=== PATIENT | female | born 1980 | race Caucasian/White ===

== ENCOUNTER 2016-09-12 04:05 | Inpatient (IN) | payer MEDICAID, OTHER ==
[~2016-09-12] VITALS: Ht 174 cm; Wt 104.8 kg
[~2016-09-12 04:05] MED LIST: IBUP-1827 PO
[2016-09-12] MEDS ORDERED: Hemorrhage Kit, Post Partum XX ONE ×2 (04:40→05:50)
[2016-09-12] MEDS ORDERED: Penicillin G K Inj 5,000,000 UNITS in Dextrose 5% Minibag Plus 100 ML IV ONE (04:40)
[2016-09-12] MEDS ORDERED: fentaNYL-PF 50 mCg/mL 2 mL Inj IVPUSH PRN (04:40)
[2016-09-12] MEDS ORDERED: Methylergonovine 0.2 mg/mL Inj IM PRN ×2 (04:40→05:50)
[2016-09-12] MEDS ORDERED: Oxytocin 30 Units/500 mL LR 30 UNITS in IV Premix 1 EACH IV PRN ×2 (04:40→05:50)
[2016-09-12] MEDS ORDERED: Lactated Ringer's 1,000 ML IV PRN (04:40)
[2016-09-12] MEDS ORDERED: Sodium Chloride LOK Flush 10 mL Syringe IVFLUSH PRN (04:40)
[2016-09-12] MEDS ORDERED: Oxytocin 10 Unit/mL Inj IM PRN ×2 (04:40→05:50)
[2016-09-12] MEDS ORDERED: Carboprost 250 mCg/mL Inj IM PRN ×2 (04:40→05:50)
[2016-09-12] MEDS ORDERED: Ondansetron 2 mg/mL 2 mL Inj IVPUSH PRN ×2 (04:40→04:50)
[2016-09-12] MEDS ORDERED: Lactated Ringer's 500 ML IV ONE (04:47)
[2016-09-12] MEDS ORDERED: Lactated Ringer's 1,000 ML IV SCH ×2 (04:47→05:48)
[2016-09-12] MEDS ORDERED: Atropine 1 mg/10 mL (Code) Syringe IVPUSH PRN (04:50)
[2016-09-12] MEDS ORDERED: EPHEDrine Sulfate 50 mg/mL Inj IVPUSH PRN (04:50)
[2016-09-12] MEDS ORDERED: fentaNYL 2 mCg/mL-Bupiv 0.125% 100 ML EPIDURAL SCH (04:50)
[2016-09-12 05:03] LABS: Mean Corpuscular Hemoglobin 27.9 pg (27.0-35.0); Mean Corpuscular Volume 87.2 fL (81-100)
[2016-09-12] MEDS ORDERED: Benzocaine (Dermoplast) 20% 60 Gm Spray TOPICAL PRN (05:50)
[2016-09-12] MEDS ORDERED: LANOlin HPA 7 Gm Ointment TOPICAL PRN (05:50)
[2016-09-12] MEDS ORDERED: Witch Hazel-Glycerin Pads TOPICAL PRN (05:50)
[2016-09-12] MEDS ORDERED: HYDROcodone-APAP 5-325 mg Tablet PO PRN (05:50)
[2016-09-12] MEDS ORDERED: Penicillin G K Inj 3,000,000 UNITS in IV Premix 1 EACH IV SCH (08:30)
[2016-09-12] MEDS ORDERED: Sodium Chloride LOK Flush 10 mL Syringe IVFLUSH SCH (08:30)
[2016-09-13 06:48] LABS: Mean Corpuscular Hemoglobin 28.1 pg (27.0-35.0)
--- NOTE | 2016-09-13 08:52 | PCM.DC.OB ---
Obstetrical Discharge Summary Date of Service Sep 13, 2016 Date of hospital admission Sep 12, 2016 at 04:40 Date of Discharge: Sep 13, 2016 Providers Admitting Physician: Robin Yin MD Primary Care Physician: Robin Yin MD Attending Physician: Robin Yin MD Problems: (1) Status post normal vaginal delivery Onset Date: 05/25/2015 Status: Acute ICD Code: V13.29 Consultations None Invasive procedures NVD Date of Procedure: Sep 12, 2016 Hospital Course: Patient presented in labor and delivered without incident. Recovered well. Ibuprofen (Ibuprofen) 600 Mg Tablet 600 MG PO Q6H PRN PRN For Mild Pain Prescribed by: ROBIN YIN MD Follow-up plan See me in six weeks. Discharge Diet: No restrictions Discharge Activity-General: Pelvic Rest for 6 weeks, Try not to overdue, Be up and about, Balance rest and activity, Activity as energy allows, No lifting >15 pounds for 2 weeks copies to: ROMAN FERREIRA MD, David B MD Sep 13, 2016 08:52
--- NOTE | 2016-09-13 08:53 | PCM.DIOB ---
Obstetrical Disch Instruction Date of Service: Sep 13, 2016 Dates of Hospitalization Date of Hospital Admission Sep 12, 2016 at 04:40 Providers Admitting Physician: Robin Ocampo MD Primary Care Physician: Robin Ocampo MD Attending Physician: Robin Ocampo MD Discharge Diagnosis Problems: (1) Status post normal vaginal delivery Onset Date: 05/25/2015 Status: Acute ICD Code: V13.29 Diet Discharge Diet: No restrictions Activity Discharge Activity-General: Pelvic Rest for 6 weeks, Be up and about, Balance rest and activity, Activity as pain allows, Activity as energy allows, No lifting >15 pounds for 2 weeks Dressing and Incisional Care Hygiene: May shower, Perineal care, Sitz bath, Dermoplast spray, Witch Ema pads Follow Up Plan Follow-up Provider (F9): Robin Ocampo MD Follow-up appointment: Weeks (6) Call your provider for: Fever or Chills, Heavy vaginal bleeding, Excessive constipation, Vaginal discomfort, Red painful breasts Robin Ocampo MD Sep 13, 2016 08:53
--- NOTE | 2016-09-13 10:39 | PROCED ---
[address] [address] PROCEDURE NOTE PATIENT: ADEBAYO SAENZ : 1980 MR#: [id number] ADMIT: 09/12/2016 JOB ID: [id number] DATE OF SERVICE: 09/12/2016 at 5:37 a.m. POSTOPERATIVE DIAGNOSIS(ES): PREOPERATIVE DIAGNOSIS(ES): SURGEON: Robin Ocampo MD This G8, P6 female at term delivered an 8 pounds 7 ounce female with Apgars of 9 and 9 by normal vaginal delivery. She presented in labor at 5-7 cm dilation and quickly progressed to complete. At first she could not push but once she did she pushed through stage 2 in approximately 10 minutes. She did not receive an epidural. She did receive 1 dose of penicillin that was completed an hour before delivery. She had no delivery complications and despite having slightly higher blood pressure during her last weeks of , her blood pressures were well controlled during delivery. Of note is that there was a nuchal cord that was easily reduced with delivery and a compound right hand. The patient did not significantly tear. Her placenta delivered approximately 5 minutes after delivery spontaneously and intact with a 3-vessel cord. Her uterus was found to be firm. Her cervix intact and her rectum intact. Counts were correct x2. There were no other complications at delivery. She was in excellent condition following delivery and did not have fevers herself.
[2016-09-13 11:33] VITALS: BP 137/64; PULSE 76; RESP 16
== END 2016-09-13 14:14 | disposition home or self-care (01) | DRG 560 ==
LOC: FBCO 04:05 → FBC 04:40
PROVIDERS: ADMIT Family Medicine; ATTEND Family Medicine
PROC: 10E0XZZ Delivery of Products of Conception, External Approach (ICD-10-PCS; principal; 2016-09-12)
DX: O69.81X0 Labor and delivery complicated by cord around neck, without compression, not applicable or unspecified (principal); Z3A.40 40 weeks gestation of pregnancy; Z37.0 Single live birth